=== PATIENT | female | born 1990 | race African-American/Black ===

== ENCOUNTER 2018-07-13 19:23 | Emergency (ER) | payer OTHER, SELFPAY ==
--- NOTE | 2018-07-13 20:41 | RAD REPORT ---
EXAM DESCRIPTION: RAD - Chest Pa And Lat (2 Views) - 07/13/2018 8:31 pm CLINICAL HISTORY: COUGH Chest pain. COMPARISON: <Comparisons> FINDINGS: The lungs are clear. The heart is normal in size. No displaced fractures. IMPRESSION: No acute or concerning finding suspected.
[2018-07-13] MEDS ORDERED: KETOROLAC 30 MG/ML INJ ONE (21:01)
--- NOTE | 2018-07-13 21:24 | EDPHYS ---
Physician Documentation [facility] Name: Raysa Perez Age: 27 yrs Sex: Female : 1990 Arrival Date: 07/13/2018 Time: 19:27 Bed 28 Private MD: ED Physician Francis Martínez HPI: 07/13 23:31 This 27 yrs old Black Female presents to ER via Ambulatory with complaints of Chest snw Pain. 23:31 The patient or guardian reports chest pain that is located primarily in the anterior snw chest wall, bilaterally. The pain does not radiate. Associated signs and symptoms: The patient has no apparent associated signs or symptoms. The chest pain is described as squeezing. Duration: The patient or guardian reports multiple episodes. Severity of pain: At its worst the pain was moderate severe. The patient has not experienced similar symptoms in the past. The patient has not recently seen a physician. no family hx, no risk factors. 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 - Social history:: Smoking status: Patient/guardian denies using tobacco. - Ebola Screening: : No symptoms or risks identified at this time. ROS: 23:30 Constitutional: Negative for fever, chills, and weight loss, Eyes: Negative for injury, snw pain, redness, and discharge, ENT: Negative for injury, pain, and discharge, Neck: Negative for injury, pain, and swelling, Respiratory: Negative for shortness of breath, cough, wheezing, and pleuritic chest pain, Abdomen/GI: Negative for abdominal pain, nausea, vomiting, diarrhea, and constipation, Back: Negative for injury and pain, : Negative for injury, bleeding, discharge, and swelling, MS/Extremity: Negative for injury and deformity, Skin: Negative for injury, rash, and discoloration, Neuro: Negative for headache, weakness, numbness, tingling, and seizure. 23:30 Cardiovascular: Positive for chest pain, with movement, of the right clavicle and anterior aspect of left upper chest. Exam: 23:28 Constitutional: This is a well developed, well nourished patient who is awake, alert, snw and in no acute distress. Head/Face: Normocephalic, atraumatic. Eyes: Pupils equal round and reactive to light, extra-ocular motions intact. Lids and lashes normal. Conjunctiva and sclera are non-icteric and not injected. Cornea within normal limits. Periorbital areas with no swelling, redness, or edema. ENT: Nares patent. No nasal discharge, no septal abnormalities noted. Tympanic membranes are normal and external auditory canals are clear. Oropharynx with no redness, swelling, or masses, exudates, or evidence of obstruction, uvula midline. Mucous membranes moist. Neck: Trachea midline, no thyromegaly or masses palpated, and no cervical lymphadenopathy. Supple, full range of motion without nuchal rigidity, or vertebral point tenderness. No Meningismus. Chest/axilla: Normal chest wall appearance and motion. Nontender with no deformity. No lesions are appreciated. Cardiovascular: Regular rate and rhythm with a normal S1 and S2. No gallops, murmurs, or rubs. Normal PMI, no JVD. No pulse deficits. Respiratory: Lungs have equal breath sounds bilaterally, clear to auscultation and percussion. No rales, rhonchi or wheezes noted. No increased work of breathing, no retractions or nasal flaring. Abdomen/GI: Soft, non-tender, with normal bowel sounds. No distension or tympany. No guarding or rebound. No evidence of tenderness throughout. Back: No spinal tenderness. No costovertebral tenderness. Full range of motion. Skin: Warm, dry with normal turgor. Normal color with no rashes, no lesions, and no evidence of cellulitis. MS/ Extremity: Pulses equal, no cyanosis. Neurovascular intact. Full, normal range of motion. Neuro: Awake and alert, GCS 15, oriented to person, place, time, and situation. Cranial nerves II-XII grossly intact. Motor strength 5/5 in all extremities. Sensory grossly intact. Cerebellar exam normal. Normal gait. Psych: Awake, alert, with orientation to person, place and time. Behavior, mood, and affect are within normal limits. Vital Signs: 19:51 BP 166 / 77; Pulse 75; Resp 17; Temp 98.5; Pulse Ox 98% on R/A; Weight 66.68 kg; Height kr2 5 ft. 5 in. (165.10 cm); Pain 4/10; 20:57 BP 107 / 73; Pulse 62; Resp 17; Pulse Ox 99% on R/A; kr2 19:51 Body Mass Index 24.46 (66.68 kg, 165.10 cm) kr2 MDM: 19:39 Patient medically screened. snw 23:29 Data reviewed: vital signs, nurses notes. Data interpreted: Pulse oximetry: on room air snw is 99 %. Interpretation: normal. Counseling: I had a detailed discussion with the patient and/or guardian regarding: the historical points, exam findings, and any diagnostic results supporting the discharge/admit diagnosis, radiology results, the need for outpatient follow up, to return to the emergency department if symptoms worsen or persist or if there are any questions or concerns that arise at home. Special discussion: Based on the patient's history, exam, and Dx evaluation, there is no indication for emergent intervention or inpatient Tx. It is understood by the patient/guardian that if the Sx's persist or worsen they need to return immediately for re-evaluation. Based on the history and exam findings, there is no indication for further emergent testing or inpatient evaluation. I discussed with the patient/guardian the need to see the primary care provider for further evaluation of the symptoms. 07/13 19:48 Order name: Chest Pa And Lat (2 Views) XRAY snw 07/13 20:43 Order name: RAD; Complete Time: 20:48 EDMS 07/13 19:48 Order name: EKG; Complete Time: 22:14 snw 07/13 19:48 Order name: EKG - Nurse/Tech; Complete Time: 20:15 snw Administered Medications: 20:57 Drug: TORadol 60 mg Route: IM; Site: left gluteus; kr2 21:25 Follow up: Response: No adverse reaction; Pain is decreased kr2 Disposition: 07/14 07:09 Co-signature as Attending Physician, Francis Martínez MD. Disposition: 07/13/18 21:24 Discharged to Home. Impression: Chest pain, unspecified. - Condition is Stable. - Discharge Instructions: Nonspecific Chest Pain, Electrocardiography, Muscle Cramps and Spasms, Cryotherapy, Heat Therapy. - Prescriptions for Diclofenac Sodium 75 mg Oral Tablet Sustained Release - take 1 tablet by ORAL route 2 times per day; 30 tablet. - Medication Reconciliation Form, Thank You Letter, Antibiotic Education, Prescription Opioid Use form. - Follow up: Private Physician; When: 2 - 3 days; Reason: Recheck today's complaints, Continuance of care, Re-evaluation by your physician. Follow up: Emergency Department; When: As needed; Reason: Worsening of condition. Signatures: Dispatcher [employer]CO Kavitha Keyes FNP-C ROVING HAND-Csnw Francis Martínez MD MD gs Reaves, Karey, RN RN kr2 Corrections: (The following items were deleted from the chart) 07/13 21:33 21:24 07/13/2018 21:24 Discharged to Home. Impression: Chest pain, unspecified. kr2 Condition is Stable. Forms are Medication Reconciliation Form, Thank You Letter, Antibiotic Education, Prescription Opioid Use. Follow up: Private Physician; When: 2 - 3 days; Reason: Recheck today's complaints, Continuance of care, Re-evaluation by your physician. Follow up: Emergency Department; When: As needed; Reason: Worsening of condition. snw
--- NOTE | 2018-07-13 21:24 | ER ---
Nurse's Notes [facility] Name: Raysa Perez Age: 27 yrs Sex: Female : 1990 Arrival Date: 07/13/2018 Time: 19:27 Bed 28 Private MD: Diagnosis: Chest pain, unspecified Presentation: 07/13 19:49 Presenting complaint: Patient states: she is having chest pain that started yesterday, kr2 "It comes in spurts that take my breath away." Denies n/v, denies cough or recent illness. Transition of care: patient was not received from another setting of care. Onset of symptoms was July 12, 2018. Risk Assessment: Do you want to hurt yourself or someone else? Patient reports no desire to harm self or others. Initial Sepsis Screen: Does the patient meet any 2 criteria? No. Patient's initial sepsis screen is negative. Does the patient have a suspected source of infection? No. Patient's initial sepsis screen is negative. Care prior to arrival: None. 19:49 Method Of Arrival: Ambulatory kr2 19:49 Acuity: TAMANNA 3 kr2 Triage Assessment: 19:40 General: Appears in no apparent distress. uncomfortable, well groomed, well developed, kr2 well nourished, Behavior is calm, cooperative, appropriate for age. Pain: Complains of pain in anterior aspect of left upper chest. 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 - Social history:: Smoking status: Patient/guardian denies using tobacco. - Ebola Screening: : No symptoms or risks identified at this time. Screenin:40 Abuse screen: Denies threats or abuse. Denies injuries from another. Nutritional kr2 screening: No deficits noted. Tuberculosis screening: No symptoms or risk factors identified. Fall Risk None identified. Assessment: 19:40 General: Appears in no apparent distress. uncomfortable, well groomed, well developed, kr2 well nourished, Behavior is calm, cooperative, appropriate for age. Pain: Complains of pain in anterior aspect of left upper chest Pain does not radiate. Pain currently is 4 out of 10 on a pain scale. Quality of pain is described as sharp, Pain began 1 day ago. Is intermittent, Alleviated by rest. Neuro: Level of Consciousness is awake, alert, obeys commands, Oriented to person, place, time, situation. Cardiovascular: Capillary refill < 3 seconds in bilateral fingers Patient's skin is warm and dry. Respiratory: Airway is patent Respiratory effort is even, unlabored, Respiratory pattern is regular, symmetrical, Breath sounds are clear bilaterally. GI: Abdomen is flat, non-distended, Patient currently denies nausea. : Denies burning with urination. EENT: Oral mucosa is moist. Derm: Skin is intact, is healthy with good turgor, Skin is pink, warm \\T\\ dry. Musculoskeletal: Circulation, motion, and sensation intact. 20:50 Reassessment: Patient appears in no apparent distress at this time. Patient and/or kr2 family updated on plan of care and expected duration. Pain level reassessed. Patient is alert, oriented x 3, equal unlabored respirations, skin warm/dry/pink. Patient denies pain at this time. Patient states feeling better. Vital Signs: 19:51 BP 166 / 77; Pulse 75; Resp 17; Temp 98.5; Pulse Ox 98% on R/A; Weight 66.68 kg; Height kr2 5 ft. 5 in. (165.10 cm); Pain 4/10; 20:57 BP 107 / 73; Pulse 62; Resp 17; Pulse Ox 99% on R/A; kr2 19:51 Body Mass Index 24.46 (66.68 kg, 165.10 cm) kr2 ED Course: 19:27 Patient arrived in ED. es 19:39 Kavitha Keyes FNP-C is [facility]. snw 19:39 Francis Martínez MD is Attending Physician. snw 19:40 Noa Lynn, MURTAZA is Primary Nurse. kr2 19:40 Arm band placed on left wrist. kr2 19:40 Patient has correct armband on for positive identification. Bed in low position. Call kr2 light in reach. Side rails up X 1. Adult w/ patient. 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 Pulse ox on. NIBP on. 19:40 No provider procedures requiring assistance completed. Patient did not have IV access kr2 during this emergency room visit. Patient maintains SpO2 saturation greater than 95% on room air. 19:50 Triage completed. kr2 Administered Medications: 20:57 Drug: TORadol 60 mg Route: IM; Site: left gluteus; kr2 21:25 Follow up: Response: No adverse reaction; Pain is decreased kr2 Outcome: 21:24 Discharge ordered by . xi 21:25 Discharged to home ambulatory, with family. kr2 21:25 Condition: good 21:25 Discharge instructions given to patient, family, Instructed on discharge instructions, follow up and referral plans. medication usage, Demonstrated understanding of instructions, follow-up care, medications, Prescriptions given X 1. 21:33 Patient left the ED. kr2 Signatures: Kavitha Keyes, MARRIAGE THERAPIST-C MARRIAGE THERAPIST-Csnw Snehal Looney Karey, RN RN kr2
--- NOTE | 2018-07-14 08:28 | EKG ---
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
== END 2018-07-13 21:33 | disposition home or self-care (01) ==
LOC: ER 19:23
DX: R07.9 Chest pain, unspecified (principal)
CPT/HCPCS: 71046; 93005; 96372; 99284

== ENCOUNTER 2020-01-11 22:11 | Emergency (ER) | payer OTHER ==
[2020-01-11] MEDS ORDERED: DIPHENHYDRAMINE 25 MG TAB/CAP ONE (22:45)
[2020-01-11] MEDS ORDERED: predniSONE 20 MG TAB ONE (22:46)
[2020-01-11] MEDS ORDERED: FAMOTIDINE 20 MG TAB ONE (22:46)
[2020-01-11 23:50] VITALS: TEMP 97.4
[2020-01-11 23:51] VITALS: BP 103/70; O2SAT 100
--- NOTE | 2020-01-13 18:24 | ER ---
Nurse's Notes [facility] Name: Raysa Perez Age: 29 yrs Sex: Female : 1990 Arrival Date: 01/11/2020 Time: 22:14 Bed 17 Private MD: Diagnosis: Urticaria, unspecified;Allergic Reaction Presentation: 01/10 22:22 Chief complaint: Patient states: I ATE SOUP AND I STARTED ITCHING AT ABOUT 6PM. I TOOK rv ONE PILL OF BENADRYL AND I FELL ASLEEP. WHEN I WOKE UP, IM STILL SCRATCHING. NOTICED RASHES ON ALL FOUR EXTREMITIES AND AT THE BACK. DENIES ANY SOB. Coronavirus screen: Proceed with normal triage. Ebola Screen: No symptoms or risks identified at this time. Initial Sepsis Screen: Does the patient meet any 2 criteria? No. Patient's initial sepsis screen is negative. Does the patient have a suspected source of infection? No. Patient's initial sepsis screen is negative. Risk Assessment: Do you want to hurt yourself or someone else? Patient reports no desire to harm self or others. Onset of symptoms was January 11, 2020 at 18:00. 22:22 Method Of Arrival: Ambulatory rv 22:22 Acuity: TAMANNA 4 rv Triage Assessment: 22:28 General: Appears comfortable, Behavior is calm, cooperative. Pain: Denies pain. EENT: rv No signs and/or symptoms were reported regarding the EENT system. Neuro: Level of Consciousness is awake, alert, obeys commands, Oriented to person, place, time, situation. Cardiovascular: Patient's skin is warm and dry. Respiratory: Airway is patent. Derm: Rash noted that is itchy, red, raised, on back, right arm, left arm, right leg and left leg. Historical: - Allergies: 22:28 No Known Allergies; rv - Home Meds: 22:28 None [Active]; rv - PMHx: 22:28 None; rv - PSHx: 22:28 None; rv - Immunization history:: Adult Immunizations up to date. - Social history:: Smoking status: Patient denies any tobacco usage or history of. Screenin:30 Abuse screen: Denies threats or abuse. Denies injuries from another. Nutritional rv screening: No deficits noted. Tuberculosis screening: No symptoms or risk factors identified. Fall Risk None identified. Assessment: 23:27 Reassessment: Patient and/or family updated on plan of care and expected duration. Pain rv level reassessed. Patient is alert, oriented x 3, equal unlabored respirations, skin warm/dry/pink. Patient states feeling better. Patient states symptoms have improved. Vital Signs: 22:22 BP 107 / 67; Pulse 95; Resp 18; Temp 97.4; Pulse Ox 99% ; Weight 63.05 kg; Height 5 ft. rv 2 in. (157.48 cm); Pain 0/10; 23:25 BP 103 / 70; Pulse 71; Resp 16; Pulse Ox 100% on R/A; rv 22:22 Body Mass Index 25.42 (63.05 kg, 157.48 cm) rv ED Course: 22:14 Patient arrived in ED. ds1 22:19 Jose Hagan MD is Attending Physician. 7 22:22 Sampson Dubon RN is Primary Nurse. rv 22:28 Triage completed. rv 22:30 Arm band placed on right wrist. Patient placed in the treatment room, on a stretcher, rv Patient notified of wait time. 22:30 Patient has correct armband on for positive identification. Pulse ox on. NIBP on. rv 23:26 No provider procedures requiring assistance completed. Patient did not have IV access rv during this emergency room visit. Administered Medications: 22:42 Drug: Benadryl 50 mg Route: PO; rv 23:26 Follow up: Response: No adverse reaction; Marked relief of symptoms rv 22:42 Drug: predniSONE 60 mg Route: PO; rv 23:26 Follow up: Response: No adverse reaction; Marked relief of symptoms rv 22:42 Drug: Pepcid 20 mg Route: PO; rv 23:26 Follow up: Response: No adverse reaction rv Outcome: 23:27 Discharged to home ambulatory. rv 23:27 Condition: improved 23:39 Discharge ordered by . mh7 23:44 Discharge instructions given to patient, Instructed on discharge instructions, follow rv up and referral plans. medication usage, Demonstrated understanding of instructions, follow-up care, medications, Prescriptions given X 3. 23:45 Patient left the ED. rv Signatures: Svitlana Paez ds1 Sampson Dubon, MURTAZA RN rv Jose Hagan MD MD 7
--- NOTE | 2020-01-13 18:24 | EDPHYS ---
Physician Documentation [facility] Name: Raysa Perez Age: 29 yrs Sex: Female : 1990 Arrival Date: 01/11/2020 Time: 22:14 Bed 17 Private MD: ED Physician Jose Hagan HPI: 01/10 22:36 This 29 yrs old Black Female presents to ER via Ambulatory with complaints of Allergic mh7 Reaction-9 wks Preg. 22:36 The patient presents with itching, rash, that is diffuse. Onset: The symptoms/episode mh7 began/occurred today, at 18:00. Associated signs and symptoms: Pertinent negatives: abdominal pain, Altered mental status chest pain, dysphagia, fever, headache, Light headed nausea, shortness of breath, swelling, Syncope vomiting. Possible causes: Oxtail soup. At home the patient or guardian has treated the symptoms with Benadryl. Severity of symptoms: At their worst the symptoms were moderate today, in the emergency department the symptoms have improved moderately. Historical: - Allergies: 22:28 No Known Allergies; rv - Home Meds: 22:28 None [Active]; rv - PMHx: 22:28 None; rv - PSHx: 22:28 None; rv - Immunization history:: Adult Immunizations up to date. - Social history:: Smoking status: Patient denies any tobacco usage or history of. ROS: 22:36 Constitutional: Negative for fever, chills, and weight loss, Eyes: Negative for injury, mh7 pain, redness, and discharge, ENT: Negative for injury, pain, and discharge, Neck: Negative for injury, pain, and swelling, Cardiovascular: Negative for chest pain, palpitations, and edema, Respiratory: Negative for shortness of breath, cough, wheezing, and pleuritic chest pain, Abdomen/GI: Negative for abdominal pain, nausea, vomiting, diarrhea, and constipation, Back: Negative for injury and pain, : Negative for injury, bleeding, discharge, and swelling, MS/Extremity: Negative for injury and deformity, Neuro: Negative for headache, weakness, numbness, tingling, and seizure, Psych: Negative for depression, anxiety, suicide ideation, homicidal ideation, and hallucinations, Endocrine: Negative for neck swelling, polydipsia, polyuria, polyphagia, and marked weight changes, Hematologic/Lymphatic: Negative for swollen nodes, abnormal bleeding, and unusual bruising. Exam: 22:36 Constitutional: This is a well developed, well nourished patient who is awake, alert, mh7 and in no acute distress. Head/Face: Normocephalic, atraumatic. Eyes: Pupils equal round and reactive to light, extra-ocular motions intact. Lids and lashes normal. Conjunctiva and sclera are non-icteric and not injected. Cornea within normal limits. Periorbital areas with no swelling, redness, or edema. ENT: Nares patent. No nasal discharge, no septal abnormalities noted. Tympanic membranes are normal and external auditory canals are clear. Oropharynx with no redness, swelling, or masses, exudates, or evidence of obstruction, uvula midline. Mucous membranes moist. Neck: Trachea midline, no thyromegaly or masses palpated, and no cervical lymphadenopathy. Supple, full range of motion without nuchal rigidity, or vertebral point tenderness. No Meningismus. Chest/axilla: Normal chest wall appearance and motion. Nontender with no deformity. No lesions are appreciated. Cardiovascular: Regular rate and rhythm with a normal S1 and S2. No gallops, murmurs, or rubs. Normal PMI, no JVD. No pulse deficits. Respiratory: Lungs have equal breath sounds bilaterally, clear to auscultation and percussion. No rales, rhonchi or wheezes noted. No increased work of breathing, no retractions or nasal flaring. Abdomen/GI: Soft, non-tender, with normal bowel sounds. No distension or tympany. No guarding or rebound. No evidence of tenderness throughout. Back: No spinal tenderness. No costovertebral tenderness. Full range of motion. 22:36 MS/ Extremity: Pulses equal, no cyanosis. Neurovascular intact. Full, normal range of motion. Neuro: Awake and alert, GCS 15, oriented to person, place, time, and situation. Cranial nerves II-XII grossly intact. Motor strength 5/5 in all extremities. Sensory grossly intact. Cerebellar exam normal. Normal gait. Psych: Awake, alert, with orientation to person, place and time. Behavior, mood, and affect are within normal limits. 22:36 Skin: rash a mild rash is noted, rash can be described as urticarial, urticaria, on the right arm and left arm. Vital Signs: 22:22 BP 107 / 67; Pulse 95; Resp 18; Temp 97.4; Pulse Ox 99% ; Weight 63.05 kg; Height 5 ft. rv 2 in. (157.48 cm); Pain 0/10; 23:25 BP 103 / 70; Pulse 71; Resp 16; Pulse Ox 100% on R/A; rv 22:22 Body Mass Index 25.42 (63.05 kg, 157.48 cm) rv MDM: 22:33 Patient medically screened. [facility] 23:37 Differential diagnosis: anaphylaxis, Hereditary Angioedema non IgE mediated drug 7 reaction urticaria. Data reviewed: vital signs, nurses notes. Counseling: I had a detailed discussion with the patient and/or guardian regarding: the historical points, exam findings, and any diagnostic results supporting the discharge/admit diagnosis, lab results, the need for outpatient follow up, the need to transfer to another facility. Administered Medications: 22:42 Drug: Benadryl 50 mg Route: PO; rv 23:26 Follow up: Response: No adverse reaction; Marked relief of symptoms rv 22:42 Drug: predniSONE 60 mg Route: PO; rv 23:26 Follow up: Response: No adverse reaction; Marked relief of symptoms rv 22:42 Drug: Pepcid 20 mg Route: PO; rv 23:26 Follow up: Response: No adverse reaction rv Disposition: 01/11/20 23:39 Discharged to Home. Impression: Urticaria, unspecified, Allergic Reaction. - Condition is Stable. - Discharge Instructions: Hives, [id number], Allergies, [id number]. - Prescriptions for Benadryl 25 mg Oral Capsule - take 2 capsule by ORAL route every 6 hours As needed; 20 tablet. Pepcid 20 mg Oral Tablet - take 1 tablet by ORAL route every 12 hours for 5 days; 10 tablet. Prednisone 20 mg Oral Tablet - take 2 tablet by ORAL route once daily for 5 days; 10 tablet. - Medication Reconciliation Form, Thank You Letter, Antibiotic Education, Prescription Opioid Use form. - Follow up: Private Physician; When: 1 - 2 days; Reason: Worsening of condition, Re-evaluation by your physician. - Problem is new. - Symptoms have improved. Signatures: Sampson Dubon RN RN rv Jose Hagan MD MD 7 Corrections: (The following items were deleted from the chart) 23:45 23:39 01/11/2020 23:39 Discharged to Home. Impression: Urticaria, unspecified; Allergic rv Reaction. Condition is Stable. Forms are Medication Reconciliation Form, Thank You Letter, Antibiotic Education, Prescription Opioid Use. Follow up: Private Physician; When: 1 - 2 days; Reason: Worsening of condition, Re-evaluation by your physician. Problem is new. Symptoms have improved. mh7
== END 2020-01-11 23:45 | disposition home or self-care (01) ==
LOC: ER 22:11
DX: O26.891 Other specified pregnancy related conditions, first trimester (principal); Z3A.09 9 weeks gestation of pregnancy
CPT/HCPCS: 99283; J7512

== ENCOUNTER 2020-08-09 04:22 | Inpatient (IN) | payer OTHER ==
[2020-08-09] MEDS ORDERED: BUTORPHANOL 1 MG/ML INJ IV PRN (04:47)
[2020-08-09] MEDS ORDERED: MEPERIDINE HCL 25 MG/ML SYR IV PRN (04:47)
[2020-08-09] MEDS ORDERED: PROMETHAZINE INJ 25 MG/ML AMP IM PRN (04:47)
[2020-08-09] MEDS ORDERED: METHYLERGONOVINE 0.2MG/ML AMP IM PRN (04:47)
[2020-08-09] MEDS ORDERED: CARBOPROST TROME 250 MCG/ML IM PRN (04:47)
[2020-08-09] MEDS ORDERED: Ringers Lactate 1,000 ML IV PRN (04:47)
[2020-08-09] MEDS ORDERED: OXYTOCIN/LR 20 UNIT/1,000 ML BAG IV SCH ×2 (05:00→22:00)
[2020-08-09] MEDS ORDERED: Ringers Lactate 1,000 ML IV SCH (05:00)
[2020-08-09 05:05] LABS: Urine Appearance CLEAR; Urine Bilirubin NEGATIVE (NEG); Urine Blood TRACE (NEG); Urine Color YELLOW; Urine Glucose NEGATIVE (NEG); Urine Protein NEGATIVE (NEG); Urine Specific Gravity <=1.005 (1.005-1.030); Urine Urobilinogen 0.2 mg/dL (0.2-1.0); Urine pH 7.5 (5.0-7.0)
[2020-08-09 05:15] VITALS: BMI 30.2
[2020-08-09 05:16] LABS: Absolute Lymphocytes (CBC) 2.7 K/uL (0.7-4.9); Basophils % 0.2 % (0-1.3); Lymphocytes % 24.8 % (15.3-44.8); MPV 10.5 fL (7.6-11.3); RBC Red Blood Cell Count 4.37 M/uL (3.86-4.86)
[2020-08-09 05:21] LABS: Urine Microscopic Reflex ORDER UMIC
[2020-08-09 05:57] LABS: Urine Bacteria <20 /HPF (<20); Urine RBC NONE SEEN /HPF (NONE SEEN)
--- NOTE | 2020-08-09 08:02 | PREOPHP ---
Date of Admission: 08/09/2020 29-year-old primigravida 39 weeks 5 days scheduled for possible induction on Monday or Monday. Cerv ix has been unfavorable. She came in this morning amberly regularly. Cervix is 2 cm, still some what posterior, about 50% to 60% effaced, which is significant improvement from the office. Baby is about -2 station, still not well applied to the cervix. Baby looks excellent on the monitor. Her bl ood pressures are fluctuating 130/86 or so on admission. Clean-catch urine was negative. She does h ave some edema. No WAGE HAND symptoms. We will monitor closely and if she develops preeclampsia during th e labor, we will start her on magnesium sulfate. This is discussed with patient family. She is on 4 milliunits of Pitocin at this point, amberly every 90 seconds or so. Baby is tolerating this qu ite well. We will increase the Pitocin to 6 milliunits and hold for a while. We do not want to caus e any stress for the baby. She knows that if the bag of water breaks, she is to tell the nursing sta ff, so we can check and make sure there is no prolapsed cord during the next few hours, but hopefully the baby will come down low enough where we can safely break the bag of water. Admission talk given . Right now, the patient desires to try to avoid epidural anesthesia and she is doing quite well, bu t of course rupture membrane does not occur at this point. She is Rh positive, immune to Rubella. N egative strep and negative COVID. Family History: Not really contributory to the current admission. There is hypertension in the fami ly, diabetes in a grandmother. Allergies: SHE HAS NO ALLERGIES. Social History: She does not smoke. Physical Examination: HEENT: Clear. Pupils equal, round, reactive to light and accommodation. Conjunctivae well perfused . No oral, lingual, or buccal lesions. Chest/Lungs: Clear. Abdomen: Term size. Baby is estimated 8 pounds or possibly greater. Extremities: Do have +1 edema, but no other problems noted. Pelvic: As stated. Plan: We will admit for delivery. LORRAINE/FREDY Voice ID: [id number]
--- NOTE | 2020-08-09 11:17 | PN ---
The patient has still made no adequate progress. She is 2 cm, 50% effaced. Baby is still ballotable and I do not feel comfortable in rupture of membranes right now. Baby still looks very good. She i s still amberly every 90 seconds. She was on 8 milliunits of Pitocin. We will have to continue to increase the Pitocin even though contractions are every minute and a half. Baby is tolerating it, but obviously contractions apparently are not strong enough to force the baby down yet. She is havi ng back labor. We will continue to do pelvic rocks. Does not request any analgesics at this time. Again, prolapsed cord discussed. The family knows to notify nursing personnel immediately if rupture of membranes occurs spontaneously. LORRAINE/FREDY Voice ID: [id number] Report ID: [id number]
--- NOTE | 2020-08-09 15:17 | PN ---
The patient is now 3 cm, 50% maybe 60% effaced, vertex, -1 station, rupture of membranes. Clear flui d. FHTs normal, reactive. The patient has had 1 mg of Stadol IV, 25 Phenergan IM. Hoping now will get into more active phase of labor. Full discussion with the patient's family. LORRAINE/FREDY Voice ID: [id number] Report ID: [id number]
[2020-08-09] MEDS ORDERED: FENTANYL CITR 100 MCG/2 ML IV ONE (15:35)
[2020-08-09] MEDS ORDERED: 0.2% ROPIVACAINE (200 MG/100 ML) BAG EP ONE (15:35)
[2020-08-09] MEDS ORDERED: ROPIVACAINE HCL 0.2% 20ML AMP IV ONE (15:36)
[2020-08-09] MEDS ORDERED: NA CIT/CITRIC AC 30 ML ORAL UDC PO ONE (18:11)
[2020-08-09] MEDS ORDERED: CEFAZOLIN 2 GM in NA CHLORIDE 0.9% 100 ML IVPB SCH (19:00)
[2020-08-09] MEDS ORDERED: METOCLOPRAMIDE 10 MG/2mL INJ IV SCH (19:00)
--- NOTE | 2020-08-09 19:20 | PN ---
Patient now has an epidural and is quite comfortable. She is amberly regularly every 90 seconds as before. She apparently had an episode of hypotension after the epidural, but now blood pressure i s back to normal. She is shivering quite a bit, but otherwise feeling no pain. Her cervix, however, is only about 3.5 cm dilated, still about 60% effaced possibly. I think the baby is occiput posteri or starting to form slight caput. The patient is on 20 milliunits of Pitocin. I do not think that t he strength of contractions is an issue here. Position of the baby and the anterior-posterior diamet er of the pelvis may be a problem. We will see. The patient wish to wait another hour or so to see if she makes any progress. I think that is reasonable. We will see what transpires in next 1-2 hour josesito PETERS/FREDY Voice ID: [id number] Report ID: [id number]
--- NOTE | 2020-08-09 19:35 | PN ---
The patient has made no significant change. She is stingy 4. Baby's head is still in the same posit ion. She is about 60% effaced. Baby is still doing well. Her blood pressures are all in the normal range. She is not shivering as much as she was and at this point says she wishes to wait another ho ur. LORRAINE/FREDY Voice ID: [id number] Report ID: [id number]
[2020-08-09] MEDS ORDERED: METOCLOPRAMIDE 10 MG/2mL INJ ONE (20:27)
[2020-08-09] MEDS ORDERED: NA CIT/CITRIC AC 30 ML ORAL UDC ONE (20:28)
[2020-08-09] MEDS ORDERED: CEFAZOLIN/SWI 2gm 2 GM/20 ML SYR ONE (20:28)
[2020-08-09] MEDS ORDERED: METHYLERGONOVINE 0.2MG/ML AMP IM ONE (20:28)
[2020-08-09] MEDS ORDERED: FAMOTIDINE 20 MG/2 ML VIAL IV ONE (20:28)
[2020-08-09] MEDS ORDERED: OXYTOCIN 10 UNIT/ML ML IV ONE (21:02)
[2020-08-09] MEDS ORDERED: MORPHINE SULFATE/PF 1 MG/ML (10 ML AMP) ONE (21:27)
[2020-08-09] MEDS ORDERED: ONDANSETRON 4 MG/2 ML VIAL ONE (21:27)
[2020-08-09] MEDS ORDERED: ONDANSETRON 4 MG (ODT) TAB PO PRN (21:31)
[2020-08-09] MEDS ORDERED: KETOROLAC 30 MG/ML INJ IM PRN (21:31)
[2020-08-09] MEDS ORDERED: BISACODYL 10 MG RECTAL SUPP PR PRN (21:31)
[2020-08-09] MEDS ORDERED: ACETAMINOPHEN 500 MG TAB PO PRN ×2 (21:31)
[2020-08-09] MEDS ORDERED: KETOROLAC 30 MG/ML INJ IV PRN (21:31)
[2020-08-09] MEDS ORDERED: ONDANSETRON 4 MG/2 ML VIAL IV PRN (21:31)
[2020-08-09] MEDS ORDERED: Oxycodone HCl/Acetaminophen 1 TAB TAB PO PRN ×2 (21:31)
[2020-08-09] MEDS ORDERED: CEFAZOLIN 2 GM in NA CHLORIDE 0.9% 100 ML IVPB ONE (21:43)
[2020-08-09] MEDS ORDERED: D5LR 1,000 ML with OXYTOCIN 20 UNIT IV SCH ×2 (22:00)
--- NOTE | 2020-08-09 22:08 | OP ---
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 Pitocin up to 20 milliunits. The patient prog ressed to 4 cm and then experienced secondary arrest of labor for some hours. Full preoperative coun seling concerning for , including infection, blood loss, anesthetic complications, injury to bladder, bowel, ureter, postoperative complications, clots in legs, and pneumonia. The patient know s fully well it does not constitute all the possible problems that could occur during or following myers rgery. Epidural anesthesia was used as it was very effective during the labor. Dr. Sears for anesthe dwaine, Dr. Li for assistance surgeon. After prepping and draping and time-out, a Pfannenstiel i ncision was created. Incision was carried to the fascia. The fascia was incised and incision mirtha d transversely bilaterally. Anterior fascial plane was developed with both blunt and sharp dissectio n, underlying rectus muscle , peritoneum entered bluntly. Low transverse bladder flap devel oped. Low transverse uterine incision created. A 7 pounds 7 ounces male delivered, Apgars 9 and 9. Unusual looking umbilical cord especially to the abdominal wall. Placenta sent for pathology, otherwise looked normal. Uterus mildly hypotonic, 0.2 mg of Methergine IM as well as IV drip Pitocin. Estimated blood loss during the procedure 900 cc or less. Uterus closed with a runnin g lock stitch of 1 chromic followed by imbricating stitch of 1 chromic followed by 3 [id number] stitches in the for complete hemostasis. The gutters clear of clot and blood. The patien t was noted to have a fairly prominent sacral promontory, but otherwise normal pelvis. Inspection of the suture line again after reposition of the uterus showed no further bleeding. Muscles were reapp roximated with 0 Vicryl 3 interrupted sutures. The fascia was closed with 1 Vicryl running from eith er angle to the midline, then 2-0 plain to close subcutaneous tissue, anant for the skin. The garcia ent had been given 2 g of Ancef, tolerated all procedures well, transferred back to her room in good condition. Final Diagnoses: Intrauterine gestation at 39 weeks 5 days, failure to progress in labor, epidural a nesthesia, mild uterine hypertonus, section primary for failure to progress in labor. LORRAINE/FREDY Voice ID: [id number] Report ID: [id number]
[2020-08-09] MEDS: METHYLERGONOVINE 0.2 MG TAB PO PRN (22:34)
[2020-08-10] MEDS ORDERED: D5LR 1,000 ML IV ONE (00:20)
[2020-08-10] MEDS ORDERED: OXYTOCIN 10 UNIT/ML ML IV ONE (00:21)
[2020-08-10] MEDS: METHYLERGONOVINE 0.2 MG TAB PO PRN ×3 (02:30→10:30)
[2020-08-10] MEDS: DIPHENHYDRAMINE 25 MG TAB/CAP PO PRN ×2 (02:30→08:15)
[2020-08-10] MEDS ORDERED: CEFAZOLIN SODIUM 1 GM/VIAL ONE (05:20)
[2020-08-10] MEDS ORDERED: WATER FOR INJ,STERILE 20 ML ONE (05:39)
--- NOTE | 2020-08-10 06:09 | PN ---
Patient is still not brought to little higher than it was last time I checked her, still b asically floating. She is 2.5. Effacement has not changed that much either. She is having regular contractions. She is on 12 milliunits of Pitocin at this time, which we will continue to increase. The baby still looks real good. Blood pressures are very good except after she is checked when they jump up, but right now I still do not think she is showing any evidence of preeclampsia. At this poi nt, she is requesting IV analgesics. She and her have also discussed the possibility for segundo arean but we decided to wait a couple of hours anyway to see if any further changes occurred before w e make that decision. LORRAINE/FREDY Voice ID: [id number] Report ID: [id number]
--- NOTE | 2020-08-10 06:09 | PN ---
The patient has shown no progress. Now she is 4 cm and has been for some time in spite of 20 milliun its of Pitocin and contractions every 1.5 minutes. Baby has lost some its variability but with acous tic stimulation it showed a good response. Fluid is still clear. Preoperative discussion including infection, blood loss, anesthetic complications, injury to bladder, bowel, ureter, postoperative comp lications, clots in legs, and pneumonia. Patient knows fully well it does not constitute all the pos sible problems that could occur during or following surgery. We have contacted Dr. Sears who was down taken over for Dr. Goodwin from Anesthesia and told him we are ready for . I have called as sistant surgeon. Surgical crew is assembling. 2 g of Ancef had been ordered and we will have Ciera elias ready as she has been in labor for long time and we anticipate possible hypotonus. All of this discussed with the family, failure to progress, pending. LORRAINE/FREDY Voice ID: [id number] Report ID: [id number]
--- NOTE | 2020-08-10 07:30 | PN ---
Postoperatively, the patient is doing well. H and H with expected change. Lochia has been reported as normal. Her last pulse was 116, where as it was 81 prior to this. She does not seem to be in any extreme pain, has not asked for any analgesics at this point. We will check her pulse again and go from there. Full postop talk given. We will discontinue her IV at lunchtime if everything looks oka y. Garcia catheter 3-4 this afternoon. We will give her liquids this morning, regular food begin at lunch time. Hosiery Pairer will assess the baby this morning, but baby seems to be doing quite well at this point. The patient is afebrile. Tdap and flu shots have been offered. She did not get those during the . She had some mild pruritus following the epidural and took Benadryl. Seems to be doing quite well at this point. Probably home Monday. LORRAINE/FREDY Voice ID: [id number] Report ID: [id number]
[2020-08-10] MEDS ORDERED: FAMOTIDINE 20 MG/2 ML VIAL IV SCH (09:00)
[2020-08-10] MEDS: IBUPROFEN 600 MG TAB PO PRN ×2 (10:15→17:15)
[2020-08-10] MEDS ORDERED: MAGNESIUM HYDROXIDE 8% 30 ML PO PRN (21:31)
[2020-08-10 23:58] LABS: RPR (Rapid Plasma Reagin) NON-REACT (NON-REACT)
[2020-08-11] MEDS: IBUPROFEN 600 MG TAB PO PRN (05:00)
[2020-08-11 07:28] VITALS: BP 116/62; TEMP 97.8
--- NOTE | 2020-08-11 07:45 | DS ---
Raysa Erazo is a 29-year-old primigravida, 39 weeks 5 days, underwent primary section for failure to progress in labor. Delivered a 7 pounds 7 ounces male infant, Apgars 9 and 9, unusual lo oking umbilical cord, but otherwise normal placenta. Straight occiput posterior. Epidural anesthesi a employed, 900 cc blood loss at time of surgery, mild hypotonus. Ancef given for prophylaxis pre an d postop. The patient is Rh positive, immune to Rubella. Negative strep screen and negative COVID s tatus. Postoperatively afebrile, ambulating, voiding. Lochia is normal. Will be dismissed later th is morning. To report back to my office in 1 week or actually Monday of next week for followup. To report any temperature elevation of 100 degrees or greater, severe pain, heavy bleeding, or any other type of abnormalities. Dismissed with tramadol, although she may elect to take Motrin instead. Off ered Tdap and flu shots during her and again today. No post epidural problems. No complai nts or problems this morning. Final Diagnoses: Term intrauterine at 39 weeks 5 days, failure to progress in labor, prima ry section, mild uterine hypotonus. Epidural anesthesia. Tdap and flu shots offered. LORRAINE/FREDY Voice ID: [id number] Report ID: [id number]
[2020-08-12 19:06] LABS: HBsAG Nonreactive (Nonreactive)
== END 2020-08-11 11:35 | disposition home or self-care (01) | DRG 788 ==
LOC: 2ND-WC 04:22
PROVIDERS: ADMIT Specialist; ATTEND Specialist
PROC: 10907ZC Drainage of Amniotic Fluid, Therapeutic from Products of Conception, Via Natural or Artificial Opening (ICD-10-PCS; 2020-08-09)
PROC: 10D00Z1 Extraction of Products of Conception, Low, Open Approach (ICD-10-PCS; principal; 2020-08-09 20:45)
DX: O62.1 Secondary uterine inertia (principal); Z3A.39 39 weeks gestation of pregnancy; Z37.0 Single live birth; Z20.828 Contact with and (suspected) exposure to other viral communicable diseases
CPT/HCPCS: 36415; 81003; 81015; 85014; 85025; 86592; 86901; 87086; 87088; 87340; 88307; J0595; J0690; J2210; J2405; J2550; J2590; J2765; J2795; J3010; J7120; J7121; U0003